=== PATIENT | male | born 1990 | race Caucasian/White ===

== ENCOUNTER 2021-10-19 11:29 | Emergency (ER) | payer MEDICAID ==
[~2021-10-19] VITALS: Ht 167.6 cm; Wt 64.4 kg
--- NOTE | 2021-10-19 11:35 | NUR ---
LO ESCOBAR. DIVERTED HERE FOR CHEST PAIN ON/OFF SINCE YESTERDAY. WILL GO TO [facility] ONCE CLEARED. +SI "WANTS TO HANG MYSELF". PLACED PATIENT COMFORTABLY IN BED. VITALS CHECKED
--- NOTE | 2021-10-19 11:45 | NUR ---
EKG DONE AT BEDSIDE
[2021-10-19 12:05] LABS: BASOPHILS # (AUTO) 0.1 K/uL (0.0-0.2); BASOPHILS % (AUTO) 0.8 % (0.0-2.0); EOSINOPHILS % (AUTO) 3.6 % (0.0-6.0); HEMATOCRIT 45 % (39-51); HEMOGLOBIN 14.7 g/dL (13.5-17.5); LYMPHOCYTES # (AUTO) 2.1 K/uL (0.8-4.8); LYMPHOCYTES % (AUTO) 28.2 % (20.0-44.0); MEAN CORPUSCULAR HGB CONC 33 g/dl (31.0-36.0); MEAN CORPUSCULAR VOLUME 84 fL (80-96); MONOCYTES # (AUTO) 0.4 K/uL (0.1-1.30); MONOCYTES % (AUTO) 5.1 % (2.0-12.0); NEUTROPHILS # (AUTO) 4.6 K/uL (1.8-8.9); NEUTROPHILS % (AUTO) 62.3 % (43.0-81.0); PLATELET COUNT (AUTO) 312 K/uL (150-450); RED BLOOD CELL COUNT(AUTO) 5.33 MIL/uL (4.5-6.0); WHITE BLOOD COUNT (AUTO) 7.3 K/uL (4.3-11.0)
--- NOTE | 2021-10-19 12:21 | NUR ---
LUNCH SERVED WITH APPROVAL OF DR OBANDO
[2021-10-19 12:50] LABS: CALCIUM, SERUM 8.8 mg/dL (8.5-10.1); CARBON DIOXIDE 26 mmol/L (21-32); CHLORIDE 107 mmol/L (98-107); CREATININE 1.1 mg/dL (0.6-1.3); GLUCOSE 93 mg/dL (74-106); POTASSIUM 4.3 mmol/L (3.5-5.1); SODIUM SERUM 139 mmol/L (136-145); UREA NITROGEN, BLOOD 17 mg/dL (7-18)
--- NOTE | 2021-10-19 13:00 | NUR ---
CXR DONE AT BEDSIDE
[2021-10-19 14:20] VITALS: BP 122/75
--- NOTE | 2021-10-19 15:48 | NUR ---
REPORT GIVEN TO NURSING PAYROLL ADMINISTRATIVE ASSISTANT [place]. PT AWAITING TRANSFER. [facility] WILL ARRANGE TRANSPORT.
--- NOTE | 2021-10-19 16:50 | NUR ---
TRANSPORTED STABLE CONDITION TO [facility].
== END 2021-10-19 16:52 ==
LOC: ER 11:34
DX: R07.89 Other chest pain (principal)
CPT/HCPCS: 36415; 71045-TC; 80048-TC; 84484-TC; 85025-TC